=== PATIENT | female | born 1970 | race Caucasian/White ===

== ENCOUNTER 2019-01-01 07:30 | Day surgery (SDC) | payer BC ==
[2018-12-30 13:15] VITALS: BMI 37.5
[2019-01-01] MEDS ORDERED: LIDOCAINE 1% 20 ML VIAL (10MG/ML) FOR IV START INTRADERMA PRN (07:40)
[2019-01-01] MEDS ORDERED: LACTATED RINGERS 1,000 ML IV SCH (07:40)
[2019-01-01 08:14] VITALS: TEMP 97.6
[2019-01-01 08:14] LABS: Glucose,Whole Blood 133 mg/dL (75-99)
[2019-01-01] MEDS ORDERED: LIDOCAINE 1% INJ 10MG/ML (20 ML MDV) ONE (08:55)
[2019-01-01] MEDS ORDERED: MIDAZOLAM 2 MG/2 ML VIAL ONE (08:55)
[2019-01-01] MEDS ORDERED: PROPOFOL 10 MG/ML 20 ML VIAL IV ONE (08:55)
[2019-01-01] MEDS ORDERED: fentaNYL (PF) 50 MCG/ML 2 ML AMP ONE (08:55)
--- NOTE | 2019-01-01 09:32 | P.PCN ---
Date of Procedure: 01/01/19 Description of Procedure: BRIEF HISTORY: Patient is a 48-year-old pleasant female scheduled for an elective colonoscopy as a part of evaluation of diarrhea and change in bowel habits. She reports 3 months of 4 soft to liquidy bowel movements with associated incontinence. She does have nocturnal bowel movements with recent increase in urgency and frequency of bowel movements. Exacerbated by eating. She also reports associated weight loss. PROCEDURE PERFORMED: Colonoscopy with biopsy. PREOPERATIVE DIAGNOSIS: Diarrhea, altered bowel function. ESTIMATED BLOOD LOSS: Minimal. IV sedation per Anesthesia. PROCEDURE: After informed consent was obtained, the patient, was brought into the endoscopy unit. IV sedation was administered by Anesthesia under continuous monitoring. Digital rectal examination was normal. Initially the Olympus CF-190 flexible video colonoscope was then inserted in the rectum, gradually advanced into the cecum without any difficulty. Careful examination was performed as the scope was gradually being withdrawn. Ileocecal valve and the appendiceal orifice were visualized and appeared normal. The terminal ileum was intubated and appeared normal with biopsies taken. Prep was excellent. Mucosa of the cecum, ascending colon, transverse colon, descending colon, sigmoid colon, and rectum appeared normal, with biopsies taken in the setting of altered bowel function and diarrhea. Retroflexion was performed in the rectum and no lesions were seen. The patient tolerated the procedure well. IMPRESSION: Normal-appearing colon from rectum to cecum, and normal-appearing terminal ileum with random biopsies taken of the terminal ileum, left colon and right colon. RECOMMENDATIONS: Findings of this examination were discussed with the patient and her . Okay to resume diet. Okay to resume medications. Follow-up with gastroenterology clinic for results of biopsies as previously scheduled.
[2019-01-01 09:33] VITALS: RESP 16
[2019-01-01 09:49] VITALS: BP 122/77; PULSE 79
== END 2019-01-01 10:10 | disposition home or self-care (01) ==
LOC: ORWHC2ENDO 07:30
PROVIDERS: ATTEND Internal Medicine
DX: R19.4 Change in bowel habit (principal); E78.5 Hyperlipidemia, unspecified; I10 Essential (primary) hypertension; E11.9 Type 2 diabetes mellitus without complications; G47.33 Obstructive sleep apnea (adult) (pediatric); Z88.6 Allergy status to analgesic agent; Z88.1 Allergy status to other antibiotic agents; Z88.5 Allergy status to narcotic agent; Z99.89 Dependence on other enabling machines and devices; M06.9 Rheumatoid arthritis, unspecified; Z79.52 Long term (current) use of systemic steroids; Z79.899 Other long term (current) drug therapy; Z79.4 Long term (current) use of insulin; Z94.0 Kidney transplant status
CPT/HCPCS: 88305; 45380; J2250; J2001; J3010; J2704

== ENCOUNTER → 2020-12-01 | Outpatient (CLI) | payer BC ==
--- NOTE | 2020-12-01 18:09 | CONS ---
CONSULTATION DATE OF SERVICE: 12/01/2020 This 50-year-old lady has been [facility] for obstructive sleep apnea- hypopnea syndrome. HISTORY OF PRESENT ILLNESS/SLEEP-WAKE EVALUATION: The patient was diagnosed with obstructive sleep apnea 6 years ago in another institution. Since that time the patient has been using her CPAP equipment every night for the whole night. While using her machine she sleeps better. At present she has some problems with her CPAP unit; it does not work well. Her usual sleep schedule is from 2 a.m. until 12 noon. She does have problems with falling asleep and has a TV set in the bedroom. She usually sleeps on the side position. If she is not using the machine she snores, stops breathing during sleep and has awakenings from sleep up to 10 times with 2 episodes of nocturia. No history of hypnagogic hallucinations, sleep paralysis or cataplexy. I checked her CPAP unit. Range of the pressure is from 5 to 20, average pressure 12 cm of water. Usage is 30/30 nights and 29/30 nights for more than 4 hours. Average usage is 8.2 hours per night, which is great compliance. Leak is 17 L/minute. Apnea-hypopnea index is only 1.6, which is normal. The patient is using an AirFit N20 nasal mask, medium size, with a heated tube. [place] Sleepiness Scale is 4. The patient does not take any naps. No history of hypnagogic hallucinations, sleep paralysis or cataplexy. PAST MEDICAL HISTORY: Positive for epilepsy, diabetes, lupus, hypothyroidism, arthritis, focal segmental glomerulosclerosis. PAST SURGICAL HISTORY: Kidney transplant, cholecystectomy, oophorectomy for endometriosis. SOCIAL HISTORY: Negative for smoking or using alcohol. MEDICATIONS: 1. Lantus 48 units once a day. 2. NovoLog 20 units 3 times a day. 3. Tacrolimus 1 mg twice a day. 4. Mycophenolic 180 twice a day. 5. Synthroid 50 mcg once a day. 6. Lisinopril 5 mg once a day. 7. Lipitor 10 mg once a day. 8. Norvasc 5 mg 1-1/2 tablet once a day. 9. Gabapentin 400 mg twice a day. 10.Calcitriol 0.25 mcg once a day. 11.Prednisone 5 mg once a day. 12.Citalopram 20 mg 1-1/2 tablet once a day. 13.Carbamazepine 300 mg once a day. 14.Flexeril 5 mg as needed. 15.Melatonin. 16.Multivitamins. FAMILY HISTORY: Hypertension, heart problems, diabetes. REVIEW OF SYSTEMS: No fevers. No double vision. No recent chest pain. No shortness of breath. No abdominal pain. No bleeding episodes. No blood in the urine. No seizure episodes. Loud snoring, multiple awakenings from sleep gasping for air if she does not use CPAP. PHYSICAL EXAMINATION: GENERAL: Pleasant lady without distress. VITAL SIGNS: BP 169/92, HR 81, RR 16, height 5 feet 8 inches, weight 275.8 pounds, body mass index 42.1, temperature 97.1, oxygen saturation at room air 93%. HEENT: PERRBRAD, EOMI, evaluation of oropharynx showed tongue protrudes midline. Low position of soft palate; Mallampati III. NECK: Supple, no JVD. Thyroid is not palpable. Neck measures 16-1/4 inches in circumference. LUNGS: Clear to percussion and to auscultation. Good air exchange. No wheezing or rhonchi. HEART: S1, S2 regular. No murmurs, gallops, or rubs. ABDOMEN: Obese. EXTREMITIES: No clubbing or cyanosis. DIETARY WORKER: Awake, alert, and oriented X3. Cranial nerves 2 to 7 intact. There is no fasciculation or atrophy. noted. No focal deficits observed. IMPRESSION: 1. Obstructive sleep apnea-hypopnea syndrome. Patient demonstrated great compliance with treatment, benefitting from treatment. CPAP unit is old and needs to be replaced. 2. Low position of soft palate, Mallampati III, wide neck at 16-1/ inches in circumference; obstructive sleep apnea-hypopnea syndrome. 3. Obesity. BMI 42.1. 4. Diabetes mellitus. 5. History of focal segmental glomerulosclerosis, status post kidney transplant. 6. Hypothyroidism. 7. Hypertension. 8. Hyperlipidemia. 9. Status post cholecystectomy. 10.History of epilepsy. PLAN: 1. Prescription for new CPAP unit and all necessary CPAP supplies, including an AirFit N20 medium nasal mask and heated tube. 2. Patient should continue to use CPAP treatment every night for the whole night. 3. I will see the patient for follow-up visit in 6 weeks after she gets her new CPAP unit to evaluate clinical response on treatment, compliance with treatment, and to make any necessary adjustments related to mask fitting, pressure and humidification. 4. Losing weight. 5. No driving if feeling sleepiness. 6. To get results of previous sleep studies. Thank you very much for referring this patient for consultation. Sincerely, Abhilash Fields MD, PhD, FAASM Diplomat of [place] [employer] Sleep Medicine Board of [place] [employer] Anesthesiology [facility] [place] MMODL / LYLYN: [id number] /
== END ==
LOC: SLEEP 13:30
PROVIDERS: ATTEND Internal Medicine
DX: G47.33 Obstructive sleep apnea (adult) (pediatric) (principal); E66.9 Obesity, unspecified; E11.9 Type 2 diabetes mellitus without complications; E03.9 Hypothyroidism, unspecified; I10 Essential (primary) hypertension; E78.5 Hyperlipidemia, unspecified; G40.909 Epilepsy, unspecified, not intractable, without status epilepticus; Z90.49 Acquired absence of other specified parts of digestive tract; Z99.89 Dependence on other enabling machines and devices; Z68.41 Body mass index [BMI] 40.0-44.9, adult; Z94.0 Kidney transplant status; Z87.448 Personal history of other diseases of urinary system; Z79.4 Long term (current) use of insulin; Z79.890 Hormone replacement therapy; Z79.899 Other long term (current) drug therapy; Z88.1 Allergy status to other antibiotic agents; Z88.6 Allergy status to analgesic agent; Z88.5 Allergy status to narcotic agent
CPT/HCPCS: 99211

== ENCOUNTER → 2023-01-30 | Outpatient (CLI) | payer BC ==
[2023-01-30 09:52] VITALS: BP 128/78; PULSE 78; RESP 15; TEMP 97.2
--- NOTE | 2023-01-30 14:47 | P.PAINPG ---
PQRS Measure Charge Sheet Comment: HISTORY OF PRESENT ILLNESS: A 52 yr old female as a referral from Dr Lynn presents today w severe and chronic LBP x 2 yrs secondary to DDD, spondylosis and facet arthropathy without myelopathy for evaluation. Pt states pain level is provoked at 6 /10 in intensity, constant, localized in the L lower lumbar spine, predominantly axial, pinching in character w occasional shooting pain towards the L hip and L knee. Pain is provoked by standing for periods of 30 min or more. Pain is alleviated by physician guided home stretches 4 times a week x [address] Lynn, heat, medications (Gabapentin, Tyl), repositioning and rest. Oswestry axial pain score at 26. PMH: OA, HTN, Hyperlipidemia, MDD, IDDM II, Hypothyroidism PSH: Colonoscopy (2019), Renal Transplant (2010), R Wrist Surgeries, Oophorectomy, D&C, Cholecystectomy, LUE Fistula SH: Negative x3. Has 2 children. FH: Mo- Alzheimer's Dementia. Fa- CAD. Sis- IDDM I. All: See list Meds: See list REVIEW OF ORGAN SYSTEMS: CONSTITUTIONAL: No fevers or chills. No recent weight loss. NEUROLOGICAL: + numbness and tingling along the distal extremities. No seizure disorders or headaches. MUSCULOSKELETAL: + pain PSYCHIATRIC: Denies current depression or suicidal thou ghts. Physical Examinations : Constitutional : Cooperative , not in acute distress . Neurologic : Cranial nerve II to XII intact. No focal neurological deficits. Psychiatric : alert & oriented x 3. Matching mood & appropriate affect. Judgment & insight intact. Musculoskeletal : Cervical Spine Motor strength in the deltoid and biceps: Normal right side. Normal Left side Motor strength biceps and the wrist extensors: Normal right side . Normal left side Motor strength in the triceps muscle: Normal right side. Normal left side Deep tendon reflexes: Normal at the biceps. Normal at Brachioradialis. Normal at triceps Vertebral body tenderness to deep palpation over Cervical facet loading test: positive bilaterally Spurling test: positive bilaterally Neck distraction test: positive bilaterally Ramana sign: positive bilaterally Lumbar spine Motor strength lower extremities ,thigh and legs 5/5 Right side , 5/5 Left side Deep tendon reflexes : Normal Knee Jerk. Normal Ankle Jerk Vertebral body tenderness over L4 Zuleta Test positive Lumbar facet Loading Test: positive Right / positive Left Range of motion of the lumbar spine Flexion 30 degrees, extension 10 degrees Straight Leg Raise test: Left/ Right positive at 35 degrees Karlene test: positive right / positive left. Severe tenderness over the Sacroiliac joint on the Right / Left sides Gaenslen test: positive bilaterally Seated flexion test: positive bilaterally. Sacral spine : Severe tenderness over the Sacroiliac joint: right side / left side Range of motion: Flexion of the lumbar spine <60 degrees Range of motion: Extension of the lumbar spine <20 degrees Gaenslen's Test positive Karlene test: positive right side / left side Thigh Thrust Test Sacral Thrust Test Imaging: CT noncontrast of the lumbar spine from 08/15/21 reviewed Assessment/ Plan : Lumbar DDD Recommendation of BRITTNEE L4-L5 #1. May need a series of injections for optimal pain relief. Risks, benefits of procedure discussed and patient verbalized understanding. Admits to anti- coagulant use or medical history of diabetes. Protocol for discontinuation/ continuation of medications jersey procedure discussed. Minimal anesthesia provided, if clinically indicated, consisting of Versed and Fentanyl. All questions answered. I have spent greater than 30 minutes on patient care today. Dr Ellis was available by phone for the evaluation of this patient. The time was used to review the medical records including relevant urine studies and Prescription history (MAPs), review of the available imaging, evaluation and examination of the patient, coordination of care with the medical staff and if applicable referring physicians, as well as creation of the medical record PQRS Narrative: Smoking Status Never smoker Home Medications: Ambulatory Orders Atorvastatin Calcium [Lipitor] 10 mg PO HS 12/30/18 Cholecalciferol (Vitamin D3) [Vitamin D3] 50 mcg PO DAILY 12/30/18 Cholestyramine (with Sugar) [Cholestyramine Packet] 4 gm PO BID 12/30/18 Citalopram Hydrobromide [Citalopram HBr] 30 mg PO QAM 12/30/18 Cyanocobalamin (Vitamin B-12) [Vitamin B-12] 1,000 mcg PO Q48H 12/30/18 Gabapentin [Neurontin] 400 mg PO BID 12/30/18 Insulin Aspart [NovoLOG Flexpen] 17 units SQ TID-W/MEALS 12/30/18 Insulin Glargine [Lantus] 35 unit SQ QAM 12/30/18 Levothyroxine Sodium [Synthroid] 50 mcg PO DAILY 12/30/18 Magnesium Oxide [Mag-Ox] 250 mg PO HS 12/30/18 Multivitamins, Thera [Multivitamin (formulary)] 1 tab PO DAILY 12/30/[address] [Myfortic] 720 mg PO BID 12/30/18 Tacrolimus [Prograf] 4 mg PO BID 12/30/18 amLODIPine [Norvasc] 7.5 mg PO DAILY 12/30/18 carBAMazepine [Carbatrol] 100 mg PO HS 12/30/18 carBAMazepine [Carbatrol] 300 mg PO Q12HR 12/30/18 predniSONE 5 mg PO DAILY 12/30/18 Controlled Substance Measures - Controlled Substance Measures Is patient prescribed a controlled substance at discharge?: No
== END ==
LOC: PNWHC3 08:51
PROVIDERS: ATTEND Specialist
DX: M51.36 Other intervertebral disc degeneration, lumbar region (principal); M51.27 Other intervertebral disc displacement, lumbosacral region; M19.90 Unspecified osteoarthritis, unspecified site; I10 Essential (primary) hypertension; E78.5 Hyperlipidemia, unspecified; F32.9 Major depressive disorder, single episode, unspecified; E11.9 Type 2 diabetes mellitus without complications; E03.9 Hypothyroidism, unspecified; Z79.4 Long term (current) use of insulin; Z79.890 Hormone replacement therapy; Z79.899 Other long term (current) drug therapy; Z88.1 Allergy status to other antibiotic agents; Z88.5 Allergy status to narcotic agent
CPT/HCPCS: 99211

== ENCOUNTER 2023-02-21 07:18 | Day surgery (SDC) | payer BC ==
[~2023-02-21 07:18] MED LIST: LACTATED RINGERS 1,000 ML IV SCH
[2023-02-21 08:34] LABS: Glucose,Whole Blood 78 mg/dL (70-110)
[2023-02-21 08:47] VITALS: TEMP 97
[2023-02-21] MEDS ORDERED: methylPREDNISolone ACETATE 40 MG/ML 1 ML VIAL ONE (09:08)
[2023-02-21] MEDS ORDERED: IOPAMIDOL M200 10 ML VIAL ONE (09:08)
--- NOTE | 2023-02-21 09:13 | P.PCN ---
Date of Procedure: 02/21/23 Procedure(s) Performed: PREOPERATIVE DIAGNOSIS: 1- Lumbar Degenerative Disc Diseases 2-Lumbar spondylosis with Facet arthropathy without myelopathy. POSTOPERATIVE DIAGNOSIS: 1-lumbar degenerative disc disease. 2-lumbar spondylosis with facet arthropathy without myelopathy. PROCEDURE 1. Lumbar epidural steroid injection under fluoroscopic guidance at the L4-5 level. (Fluoroscopy imaging was available in radiology department) 2. Lumbar epidurogram. ANESTHESIA: Lidocaine 1% 3 and then only. EBL: Minimal PROCEDURE INDICATION: The patient with low back pain and radiculitis symptoms unresponsive to conservative treatment. Fluoroscopy was used to optimize visualization of the needle placement and to maximize safety. PROCEDURE DESCRIPTION / TECHNIQUE: The patient was seen and identified in the preoperative area. Risks, benefits, complications including but not limited to infections ,bleeding ,allergic reaction to the medications ,nerve damage and not complete pain releife , and alternatives were discussed with the patient. The patient agreed to proceed with the procedure and signed the consent, and vital signs were stable. Patient was taken to the OR and time out was completed. The patient was placed in the prone position on procedure table and a pillow was placed under the abdomen to reduce lumbar lordosis. The lumbosacral area was prepped and draped in the usual sterile fashion.ere closely monitored during the procedure. Vital signs was monitered during the entire procedure. Using anterior-posterior fluoroscopy, the L4-5 interlaminar space was identified and the skin over this site was marked and then infiltrated with 1% lidocaine subcutaneously. Subsequently, a 20-gauge Tuohy epidural needle was inserted and advanced toward the epidural space using the ``Loss of resistance technique and guided by AP and lateral fluoroscopy. The correct needle position in the epidural space was verified with the injection of 2 mL of the water soluble contrast dye Isovue 200 contrast and observing an excellent epidurogram with the epidural spread of the dye, after negative aspiration for blood and CSF and in the absence of paresthesias. Again after negative aspiration, a 6 ml mixture containing 40 mg of Depo-medrol ( Preservetive Free ), and 2 ml of preservative free Normal Saline, and 2 ml of preservative free lidocaine 1% solution was injected and a washout of epidurogram was seen. Needle was withdrawn intact, skin was cleansed, and bandages were applied. COMPLICATIONS: None DISPOSITION / PLANS: The patient was placed in a supine position and transferred to the recovery area in a stable condition for observation. There was no evid ence of lower extremity motor or sensory deficit after the procedure. Patient was discharged from the recovery room after meeting discharge criteria. Home discharge instructions were given to the patient by the staff. The patient was reexamined prior to discharge. The patient will schedule a follow up in the clinic in 2-4 weeks.
--- NOTE | 2023-02-21 09:24 | FL ---
EXAMINATION TYPE: FL guided pain mgmt statistic DATE OF EXAM: 02/21/2023 HISTORY: Fluoroscopy time Total dose area product (DAP) in uGy*m?, mGy*cm? (or similar): 0.26968 IMPRESSION: 1. Fluoroscopy time.
[2023-02-21 09:25] LABS: Glucose,Whole Blood 90 mg/dL (70-110)
[2023-02-21 09:38] VITALS: BP 115/61; PULSE 79; RESP 18
== END 2023-02-21 09:38 | disposition home or self-care (01) ==
LOC: ORPAIN 07:18
PROVIDERS: ATTEND Specialist
DX: M51.16 Intervertebral disc disorders with radiculopathy, lumbar region (principal); M47.26 Other spondylosis with radiculopathy, lumbar region; E11.9 Type 2 diabetes mellitus without complications; K60.3 Anal fistula; Z88.5 Allergy status to narcotic agent; Z88.1 Allergy status to other antibiotic agents
CPT/HCPCS: 62323; J1030; Q9966

== ENCOUNTER → 2023-03-20 | Outpatient (CLI) | payer BC ==
[2023-03-20 09:31] VITALS: BP 144/86; PULSE 78; RESP 16; TEMP 98.1
--- NOTE | 2023-03-20 14:31 | P.PAINPG ---
PQRS Measure Charge Sheet Comment: HISTORY OF PRESENT ILLNESS: A 52 yr old female presents today w severe and chronic LBP x 2 yrs secondary to DDD, spondylosis and facet arthropathy without myelopathy for evaluation s/p BRITTNEE L4-L5 #1. Pt states she experienced 50% relief x 2 wks s/p procedure. Pt states pain level is provoked at 7 /10 in intensity, constant, localized in the L lower lumbar spine, predominantly axial, pinching in character w occasional shooting pain towards the L hip and L knee. Pain is provoked by standing for periods of 30 min or more. Pain is alleviated by physician guided home stretches 4 times a week x [address] Lynn, heat, medications, repositioning and rest. Oswestry axial pain score at 26. Interventional procedures include BRITTNEE L4-L5 x1 Medications include Neurontin, Tyl REVIEW OF ORGAN SYSTEMS: CONSTITUTIONAL: No fevers or chills. No recent weight loss. NEUROLOGICAL: + numbness and tingling along the distal extremities. No seizure disorders or headaches. MUSCULOSKELETAL: + pain PSYCHIATRIC: Denies current depression or suicidal thoughts. Physical Examinations : Constitutional : Cooperative , not in acute distress . Neurologic : Cranial nerve II to XII intact. No focal neurological deficits. Psychiatric : alert & oriented x 3. Matching mood & appropriate affect. Judgment & insight intact. Musculoskeletal : Cervical Spine Motor strength in the deltoid and biceps: Normal right side. Normal Left side Motor strength biceps and the wrist extensors: Normal right side . Normal left side Motor strength in the triceps muscle: Normal right side. Normal left side Deep tendon reflexes: Normal at the biceps. Normal at Brachioradialis. Normal at triceps Vertebral body tenderness to deep palpation over Cervical facet loading test: positive bilaterally Spurling test: positive bilaterally Neck distraction test: positive bilaterally Ramana sign: positive bilaterally Lumbar spine Motor strength lower extremities ,thigh and legs 5/5 Right side , 5/5 Left side Deep tendon reflexes : Normal Knee Jerk. Normal Ankle Jerk Vertebral body tenderness over L4 Zuleta Test positive Lumbar facet Loading Test: positive Right / positive Left Range of motion of the lumbar spine Flexion 30 degrees, extension 10 degrees Straight Leg Raise test: Left/ Right positive at 35 degrees Karlene test: positive right / positive left. Severe tenderness over the Sacroiliac joint on the Right / Left sides Gaenslen test: positive bilaterally Seated flexion test: positive bilaterally. Sacral spine : Severe tenderness over the Sacroiliac joint: right side / left side Range of motion: Flexion of the lumbar spine <60 degrees Range of motion: Extension of the lumbar spine <20 degrees Gaenslen's Test positive Karlene test: positive right side / left side Thigh Thrust Test Sacral Thrust Test Imaging: CT noncontrast of the lumbar spine from 08/15/21 reviewed Assessment/ Plan : Lumbar DDD Recommendation of L TFESI L4-L5 #2. May need a series of injections for optimal pain relief. Risks, benefits of procedure discussed and patient verbalized understanding. Admits to anti- coagulant use or medical history of diabetes. Protocol for discontinuation/ continuation of medications jersey procedure discussed. Minimal anesthesia provided, if clinically indicated, consisting of Versed and Fentanyl. All questions answered. I have spent greater than 30 minutes on patient care today. Dr Ellis was available by phone for the evaluation of this patient. The time was used to review the medical records including relevant urine studies and Prescription history (MAPs), review of the available imaging, evaluation and examination of the patient, coordination of care with the medical staff and if applicable referring physicians, as well as creation of the medical record PQRS Narrative: Smoking Status Never smoker Hx Alcohol Use (MH) No Home Medications: Ambulatory Orders Atorvastatin Calcium [Lipitor] 10 mg PO HS 12/30/18 Cholecalciferol (Vitamin D3) [Vitamin D3] 50 mcg PO DAILY 12/30/18 Citalopram Hydrobromide [Citalopram HBr] 30 mg PO QAM 12/30/18 Cyanocobalamin (Vitamin B-12) [Vitamin B-12] 1,000 mcg PO Q48H 12/30/18 Gabapentin [Neurontin] 300 mg PO BID 12/30/18 Insulin Aspart [NovoLOG Flexpen] 35 units SQ TID-W/MEALS 12/30/18 Insulin Glargine [Lantus] 50 unit SQ QAM 12/30/18 Levothyroxine Sodium [Synthroid] 50 mcg PO DAILY 12/30/18 Magnesium Oxide [Mag-Ox] 250 mg PO HS 12/30/18 Multivitamins, Thera [Multivitamin (formulary)] 1 tab PO DAILY 12/30/[address] [Myfortic] 720 mg PO BID 12/30/18 Tacrolimus [Prograf] 4 mg PO 1700 12/30/18 amLODIPine [Norvasc] 7.5 mg PO DAILY 12/30/18 carBAMazepine [Carbatrol] 100 mg PO HS 12/30/18 carBAMazepine [Carbatrol] 300 mg PO Q12HR 12/30/18 predniSONE 5 mg PO DAILY 12/30/18 Tacrolimus [Prograf] 5 mg PO 0800 02/19/23 Controlled Substance Measures - Controlled Substance Measures Is patient prescribed a controlled substance at discharge?: No
== END ==
LOC: PNWHC3 09:07
PROVIDERS: ATTEND Specialist
DX: M51.36 Other intervertebral disc degeneration, lumbar region (principal); Z88.1 Allergy status to other antibiotic agents; Z88.5 Allergy status to narcotic agent
CPT/HCPCS: 99211

== ENCOUNTER 2023-04-02 10:52 | Day surgery (SDC) | payer BC ==
[2023-03-28 15:25] VITALS: BMI 43.8
[2023-04-02 11:42] VITALS: RESP 16; TEMP 96.5
[2023-04-02 11:45] LABS: Glucose,Whole Blood 122 mg/dL (70-110)
[2023-04-02] MEDS ORDERED: IOPAMIDOL M200 10 ML VIAL ONE (12:39)
[2023-04-02] MEDS ORDERED: methylPREDNISolone ACETATE 40 MG/ML 1 ML VIAL ONE (12:39)
--- NOTE | 2023-04-02 12:49 | P.PCN ---
Date of Procedure: 04/02/23 Procedure(s) Performed: PREOPERATIVE DIAGNOSIS: 1-Lumbar radiculopathy . 2-lumbar degenerative disc disease. 3-lumbar spondylosis with lumbar facet arthropathy without myelopathy POSTOPERATIVE DIAGNOSIS: 1-lumbar radiculopathy. 2-lumbar degenerative disc disease. 3-lumbar spondylosis with facet arthropathy without myelopathy PROCEDURE 1. Transforaminal epidural steroid injection under fluoroscopic guidance at left L4-5 level. (Fluoroscopy images stored on file in the radiology Department ) 2. Lumbar epidurogram . ANESTHESIA: Local with 1% lidocaine 3 ml. EBL: Minimal PROCEDURE INDICATION: The patient with low back pain and radiculopathy symptoms unresponsive to conservative treatment. PROCEDURE DESCRIPTION / TECHNIQUE: The patient was seen and identified in the preoperative area. Risks, benefits, complications, and alternatives were discussed with the patient. The patient agreed to proceed with the procedure and signed the consent. IV was started, and vital signs were stable. Patient was taken to the OR and time out was completed. The patient was placed in the prone position on procedure table and a pillow was placed under the abdomen to reduce lumbar lordosis. The lumbosacral area was prepped and draped in the usual sterile fashion. Critical pause was taken. Vital signs were closely monitored during the procedure. Using oblique fluoroscopy, the chin of the ``Jacky dog at left L4-5 level was identified, and the skin and deeper tissues just below was localized with 1% lidocaine. Subsequently, a 22-gauge 5-inch spinal needle was advanced under a tunneled view fluoroscopic guidance just underneath the chin of the ``Jacky dog at the left L4-5 Under lateral fluoroscopy, the needle was then advanced to the posterior border of the interforaminal space. After negative aspiration of CSF and blood and with no paresthesias, 1 mL Isovue 200 contrast dye was injected excellent epidurogram and outlining of the nerve root Subsequently, 3 mL of block solution containing 40 mg Depo-Medrol and 2 mL of 0.9% normal saline PF was injected. Needle was removed . At the end of the procedure, skin was cleansed, and bandages were applied. COMPLICATIONS:none DISPOSITION / PLANS: The patient was placed in a supine position and transferred to the recovery area in a stable condition for observation. There was no evidence of lower extremity motor or sensory deficit after the procedure. Patient was discharged from the recovery room after meeting discharge criteria. Home discharge instructions were given to the patient by the staff. The patient was reexamined prior to discharge.
[2023-04-02 13:01] LABS: Glucose,Whole Blood 113 mg/dL (70-110)
--- NOTE | 2023-04-02 13:09 | FL ---
EXAMINATION TYPE: FL guided pain mgmt statistic Intraoperative/procedural fluoroscopic services were provided. Total fluoroscopy time is 9 point seconds with a total of 1 submitted images to PACS. Pleas e see the operative/procedural note for further details. DAP: [id number] mGym2
[2023-04-02 13:20] VITALS: BP 141/85; PULSE 78
== END 2023-04-02 13:22 | disposition home or self-care (01) ==
LOC: ORPAIN 10:52
PROVIDERS: ATTEND Specialist
DX: M51.16 Intervertebral disc disorders with radiculopathy, lumbar region (principal); M47.26 Other spondylosis with radiculopathy, lumbar region; E11.9 Type 2 diabetes mellitus without complications
CPT/HCPCS: 64483; J1030; Q9966

== ENCOUNTER → 2023-04-18 | Outpatient (CLI) | payer BC ==
[2023-04-18 10:00] VITALS: BP 142/75; PULSE 97; RESP 15; TEMP 97.5
--- NOTE | 2023-04-18 14:32 | P.PAINPG ---
PQRS Measure Charge Sheet Comment: HISTORY OF PRESENT ILLNESS: A 52 yr old female presents today w severe and chronic LBP x 2 yrs secondary to DDD, spondylosis and facet arthropathy without myelopathy for evaluation s/p L TFESI L4-L5 #1. Pt states she experienced 80% relief x 2 wks s/p procedure. Pt states pain level is provoked at 4 /10 in intensity, constant, localized in the L lower lumbar spine, predominantly axial, pinching in character without shooting pain. Pain is provoked by standing for periods of 30 min or more. Pain is alleviated by PT x 6 wks in 2021, physician guided home stretches 4 times a week since [address] Lynn, heat, medications, repositioning and rest. Oswestry axial pain score at 23. Interventional procedures include BRITTNEE L4-L5 x1, L TFESI L4-L5 x1 Medications include Neurontin, Tyl REVIEW OF ORGAN SYSTEMS: CONSTITUTIONAL: No fevers or chills. No recent weight loss. NEUROLOGICAL: + numbness and tingling along the distal extremities. No seizure disorders or headaches. MUSCULOSKELETAL: + pain PSYCHIATRIC: Denies current depression or suicidal thoughts. Physical Examinations : Constitutional : Cooperative , not in acute distress . Neurologic : Cranial nerve II to XII intact. No focal neurological deficits. Psychiatric : alert & oriented x 3. Matching mood & appropriate affect. Judgment & insight intact. Musculoskeletal : Cervical Spine Motor strength in the deltoid and biceps: Normal right side. Normal Left side Motor strength biceps and the wrist extensors: Normal right side . Normal left side Motor strength in the triceps muscle: Normal right side. Normal left side Deep tendon reflexes: Normal at the biceps. Normal at Brachioradialis. Normal at triceps Vertebral body tenderness to deep palpation over Cervical facet loading test: positive bilaterally Spurling test: positive bilaterally Neck distraction test: positive bilaterally Ramana sign: positive bilaterally Lumbar spine Motor strength lower extremities ,thigh and legs 5/5 Right side , 5/5 Left side Deep tendon reflexes : Normal Knee Jerk. Normal Ankle Jerk Vertebral body tenderness over L4 Zuleta Test positive Lumbar facet Loading Test: positive Right / positive Left Range of motion of the lumbar spine Flexion 30 degrees, extension 10 degrees Straight Leg Raise test: Left/ Right positive at 35 degrees Karlene test: positive right / positive left. Severe tenderness over the Sacroiliac joint on the Right / Left sides Gaenslen test: positive bilaterally Seated flexion test: positive bilaterally. Sacral spine : Severe tenderness over the Sacroiliac joint: right side / left side Range of motion: Flexion of the lumbar spine <60 degrees Range of motion: Extension of the lumbar spine <20 degrees Gaenslen's Test positive Karlene test: positive right side / left side Thigh Thrust Test Sacral Thrust Test Imaging: CT noncontrast of the lumbar spine from 08/15/21 reviewed Assessment/ Plan : Lumbar DDD Recommendation of medication management. 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 Referral for use of topical Diclofenac gel 3% or Salon Pas patches w Hx of DIONISIO script provided. All questions answered. I have spent greater than 30 minutes on patient care today. Dr Ellis was available by phone for the evaluation of this patient. The time was used to review the medical records including relevant urine studies and Prescription history (MAPs), review of the available imaging, evaluation and examination of the patient, coordination of care with the medical staff and if applicable referring physicians, as well as creation of the medical record PQRS Narrative: Smoking Status Never smoker Hx Alcohol Use (MH) No Home Medications: Ambulatory Orders Atorvastatin Calcium [Lipitor] 10 mg PO HS 12/30/18 Cholecalciferol (Vitamin D3) [Vitamin D3] 50 mcg PO DAILY 12/30/18 Citalopram Hydrobromide [Citalopram HBr] 30 mg PO QAM 12/30/18 Cyanocobalamin (Vitamin B-12) [Vitamin B-12] 1,000 mcg PO Q48H 12/30/18 Gabapentin [Neurontin] 300 mg PO BID 12/30/18 Insulin Aspart [NovoLOG Flexpen] 35 units SQ TID-W/MEALS 12/30/18 Insulin Glargine [Lantus] 50 unit SQ QAM 12/30/18 Levothyroxine Sodium [Synthroid] 50 mcg PO DAILY 12/30/18 Magnesium Oxide [Mag-Ox] 250 mg PO HS 12/30/18 Multivitamins, Thera [Multivitamin (formulary)] 1 tab PO DAILY 12/30/[address] [Myfortic] 720 mg PO BID 12/30/18 Tacrolimus [Prograf] 4 mg PO 1700 12/30/18 amLODIPine [Norvasc] 7.5 mg PO DAILY 12/30/18 carBAMazepine [Carbatrol] 100 mg PO HS 12/30/18 carBAMazepine [Carbatrol] 300 mg PO Q12HR 12/30/18 predniSONE 5 mg PO DAILY 12/30/18 Tacrolimus [Prograf] 5 mg PO 0800 02/19/23 Controlled Substance Measures - Controlled Substance Measures Is patient prescribed a controlled substance at discharge?: No
== END ==
LOC: PNWHC3 09:39
PROVIDERS: ATTEND Specialist
DX: M51.36 Other intervertebral disc degeneration, lumbar region (principal); Z88.1 Allergy status to other antibiotic agents; Z88.5 Allergy status to narcotic agent; Z88.8 Allergy status to other drugs, medicaments and biological substances
CPT/HCPCS: 99211